=== PATIENT | male | born 1980 | race African-American/Black ===

== ENCOUNTER 2019-01-06 21:56 | Emergency (ER) | payer MEDICAID ==
--- OUTSIDE RECORDS SUMMARY | 2019-01-06 22:48 | XMS REPORT | Continuity of Care Document ---
:1980 External Reference #:[id number] Author Name Kim Dykes DO (transmitted by agent of provider Tosha Gonzalez) Address [address] [place] [address] Care Team Providers Name Role Phone Kim Dykes DO - Hospitalist Care Team Information Psychologist Private Practice Problems Description No Information Available Social History Type Date Description Comments Sex Unknown ETOH Use Denies alcohol use Tobacco Use Start: Unknown Heavy tobacco smoker (more than 10 cigarettes/day) Recreational Drug Use Denies Drug Use Smoking Status Reviewed: 12/30/18 Heavy tobacco smoker (more than 10 cigarettes/day) Allergies, Adverse Reactions, Alerts Description No Known Drug Allergies Medications Active Medications SIG Qnty Indications Ordering Date Provider Multivitamin Men Kim Dykes, 12/30/2018 DO Tablets Clozapine 1po daily Kim Dykes, 12/30/2018 200mg DO Tablets Dispers Clozapine 1 po daily Kim Dykes, 12/30/2018 150mg DO Tablets Dispers Clozapine 2 po at Kim Dykes, 12/30/2018 200mg DO Tablets Dispers Clozapine 1 po at hs Kim Dykes, 12/30/2018 100mg DO Tablets Simethicone take one twice a day 30caps R14.1 Kim Dykes, 12/30/2018 125mg as needed for gas DO Capsules Bisacodyl Ec take one daily as 30tabs R14.1 Kim Dykes, 12/30/2018 5mg needed for DO Tablets DR constipation Miralax take 17 g twice a 1units Kim Dykes, 12/30/2018 Powder day DO Depakote 3 by mouth bid a Unknown 500mg day Tablets DR History Medications Protonix 1 by mouth every 30tabs Kim Marquesner, DO 12/30/2018 - 40mg Tablets day 12/30/2018 Immunizations Description No Information Available Vital Signs Date Vital Result Comment 12/30/2018 11:32am Weight 301.00 lb Heart Rate 98 /min BP Systolic 114 mmHg BP Diastolic 80 mmHg Body Temperature 97.7 F O2 % BldC Oximetry 97 % Results Description No Information Available Procedures Description No Information Available Medical Devices Description No Information Available Encounters Description No Information Available Assessments Date Code Description Provider 12/30/2018 Z00.00 Encounter for general adult medical examination Kim Dykes DO without abnormal findings 12/30/2018 Z72.0 Tobacco use Kim Dykes, DO 12/30/2018 R14.1 Gas pain Kim Dykes, DO 12/30/2018 K59.00 Constipation, unspecified Kim Dykes, DO 12/30/2018 R35.0 Frequency of micturition Kim Dykes DO Plan of Treatment 12/30/2018 - Kim Dykes DOZ00.00 Encounter for general adult medical examination without abnormal findingsReferral:Nitin Kim DPM, ZuocbvmhazF46.0 Tobacco useR14.1 Gas painNew Medication:Simethicone 125 mg - take one twice a day as needed for gasBisacodyl Ec 5 mg - take one daily as needed for bppqrrzjziexE70.00 Constipation, unspecifiedComments:stop the protonix, senna, and colaceReferral:Omar Messina MD, DmsuvljyiktqorpsQ35.0 Frequency of micturitionReferral:Guilherme Rhodes MD, Urology Functional Status Description No Information Available Mental Status Description No Information Available Referrals Refer to Reason for Referral Status Appt Date Nitin Kim DPM Created [address] [place] [address] [phone] Omar Messina MD Created [address] [place] [address] [phone] Guilherme Rhodes MD Created [address] [facility] [place] [place] [address] [place] [address] [phone]
[2019-01-06 22:55] LABS: ABS Basophils 0.1 10^3/ul (0-0.2); ABS Eosinophils 0.2 10^3/ul (0-0.6); ABS Lymphocytes 3.1 10^3/ul (1.0-4.8); ABS Monocytes 1.2 10^3/ul (0-0.8); ABS Neutrophils 7.8 10^3/ul (1.5-7.7); Eosinophil % 1.9 %; Hematocrit 45 % (42-52); Hemoglobin 15.2 g/dL (14.0-18.0); Lymphocyte % 24.7 %; Mean Corpuscular HGB Conc 34 g/dL (31-36); Mean Corpuscular Hemoglobin 32 pg (27-31); Mean Corpuscular Volume 96 fL (80-94); Mean Platelet Volume 7.6 fL (7.4-10.4); Nucleated Red Blood Cells % 0.1; Platelet Count 225 10^3/uL (150-450); Red Blood Count 4.74 10^6 /uL (4.18-5.48); Red Cell Distribution Width 14 % (10-15); White Blood Count 12.4 10^3/uL (3.5-10.8)
[2019-01-06 23:11] LABS: Urine Appearance Cloudy; Urine Bilirubin Negative (Negative); Urine Blood Negative (Negative); Urine Color Yellow; Urine Glucose Negative (Negative); Urine Ketones Negative (Negative); Urine Nitrite Negative (Negative); Urine Protein Negative (Negative); Urine Specific Gravity 1.016 (1.010-1.030); Urine Urobilinogen Negative (Negative)
[2019-01-06 23:11] LABS: ALT 26 U/L (7-52); AST 26 U/L (13-39); Albumin 4.7 g/dL (3.2-5.2); Albumin/Globulin Ratio 1.3 (1-3); Alkaline Phosphatase 50 U/L (34-104); Anion Gap 6 mmol/L (2-11); BUN/Creatinine Ratio 16.1 (8-20); Blood Urea Nitrogen 15 mg/dL (6-24); CO2 Carbon Dioxide 33 mmol/L (22-32); Calcium 10.1 mg/dL (8.6-10.3); Chloride 101 mmol/L (101-111); EGFR African American 109.4 (>60); EGFR Non-African American 90.5 (>60); Globulin 3.5 g/dL (2-4); Glucose 95 mg/dL (70-100); Potassium 4.3 mmol/L (3.5-5.0); Sodium 140 mmol/L (135-145); Total Protein 8.2 g/dL (6.4-8.9)
[2019-01-06 23:31] LABS: Urine Benzodiazepine Screen None Detected (None Detect); Urine Opiates Screen None Detected (None Detect)
[2019-01-06 23:35] LABS: Acetaminophen < 15 mcg/mL; Alcohol < 10 mg/dL (<10); Salicylate < 2.50 mg/dL (<30)
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
[2019-01-06 23:49] LABS: TSH (Thyroid Stimulating Horm) 0.56 mcIU/mL (0.34-5.60)
[2019-01-07] MEDS: Al Hydrox/Mg Hydrox/Simet LIQ* 30 ML UDC PO ONE (03:04)
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
[2019-01-07] MEDS ORDERED: Polyethylene Glycol 3350* 17 GM PACKET PO PRN (08:13)
[2019-01-07] MEDS: Divalproex DR TAB(*) 500 MG PO SCH (08:41)
[2019-01-07] MEDS: Senna TAB 8.6 mg* TAB PO SCH (08:42)
[2019-01-07] MEDS: CloZAPine TAB* 25 MG TAB PO SCH (08:42)
[2019-01-07] MEDS: CloZAPine TAB* 100 MG TAB PO SCH (08:42)
[2019-01-07] MEDS: CLOZAPINE 500 MG PO SCH (08:49)
[2019-01-07 12:56] VITALS: BP 131/78
== END 2019-01-07 13:29 | disposition home or self-care (01) ==
LOC: ED 21:56
DX: F20.0 Paranoid schizophrenia (principal); F43.20 Adjustment disorder, unspecified; F17.200 Nicotine dependence, unspecified, uncomplicated; Z79.899 Other long term (current) drug therapy
CPT/HCPCS: 36415; 80053; 80164; 80307; 80320; 80329; 81003; 84443; 85025; 99284; A9270-GY; G0480

== ENCOUNTER 2020-03-31 20:41 | Inpatient (IN) ==
[2020-03-31] MEDS ORDERED: Nicotine GUM 2MG FRUIT FLAVOR PO PRN (23:00)
[2020-03-31] MEDS ORDERED: Haloperidol 5 mg/ml SDV IV/IM 5 MG/ML AMP IM PRN (23:49)
[2020-03-31] MEDS ORDERED: LORazepam 2 mg VIAL 1 ml IM PRN (23:50)
[2020-03-31] MEDS ORDERED: Lorazepam PYXIS KEY PRN (23:50)
[2020-03-31] MEDS ORDERED: diPHENhydraMINE IV 50 MG/ML 1 ml VIAL (BENADRYL) IM PRN (23:51)
[2020-04-01] MEDS: Calcium Polycarbophil 625mg TB PO SCH (09:27)
[2020-04-01] MEDS: Vitamin THERAPEUTIC TAB PO SCH (09:27)
[2020-04-01] MEDS: Polyethylene Glycol 3350 17 GM PACKET PO SCH (09:40)
[2020-04-01] MEDS: Nicotine PATCH 14 MG/24 HR PATCH TRANSDERM SCH (09:40)
[2020-04-01] MEDS ORDERED: LORazepam 2 mg VIAL 1 ml IM PRN (10:48)
[2020-04-01] MEDS ORDERED: Lorazepam PYXIS KEY PRN (10:48)
[2020-04-02 08:31] LABS: HDL Cholesterol 41.4 mg/dL
[2020-04-02] MEDS: Al Hydrox/Mg Hydrox/Simet LIQ 30 ML UDC PO PRN (09:58)
[2020-04-02] MEDS: Calcium Polycarbophil 625mg TB PO SCH (12:45)
[2020-04-02] MEDS: Vitamin THERAPEUTIC TAB PO SCH (13:43)
[2020-04-02] MEDS: Nicotine PATCH 14 MG/24 HR PATCH TRANSDERM SCH (13:43)
[2020-04-03] MEDS: Calcium Polycarbophil 625mg TB PO SCH (09:31)
[2020-04-03] MEDS: Nicotine PATCH 14 MG/24 HR PATCH TRANSDERM SCH (09:31)
[2020-04-03] MEDS: Vitamin THERAPEUTIC TAB PO SCH (09:31)
[2020-04-03] MEDS: Polyethylene Glycol 3350 17 GM PACKET PO SCH (09:31)
[2020-04-03] MEDS: Al Hydrox/Mg Hydrox/Simet LIQ 30 ML UDC PO PRN (14:16)
[2020-04-04] MEDS: Al Hydrox/Mg Hydrox/Simet LIQ 30 ML UDC PO PRN (00:10)
[2020-04-04] MEDS: Polyethylene Glycol 3350 17 GM PACKET PO SCH (04:42)
[2020-04-04] MEDS: Calcium Polycarbophil 625mg TB PO SCH (11:43)
[2020-04-04] MEDS: Nicotine PATCH 14 MG/24 HR PATCH TRANSDERM SCH (11:44)
[2020-04-04] MEDS: Vitamin THERAPEUTIC TAB PO SCH (11:44)
[2020-04-05] MEDS: Calcium Polycarbophil 625mg TB PO SCH (08:44)
[2020-04-05] MEDS: Vitamin THERAPEUTIC TAB PO SCH (08:45)
[2020-04-05] MEDS: Nicotine PATCH 14 MG/24 HR PATCH TRANSDERM SCH (08:45)
[2020-04-05] MEDS: Polyethylene Glycol 3350 17 GM PACKET PO SCH (08:45)
[2020-04-06] MEDS: Vitamin THERAPEUTIC TAB PO SCH (07:59)
[2020-04-06] MEDS: Calcium Polycarbophil 625mg TB PO SCH (07:59)
[2020-04-06] MEDS: Nicotine PATCH 14 MG/24 HR PATCH TRANSDERM SCH (07:59)
[2020-04-07] MEDS: Calcium Polycarbophil 625mg TB PO SCH (09:22)
[2020-04-07] MEDS: Polyethylene Glycol 3350 17 GM PACKET PO SCH (09:23)
[2020-04-07] MEDS: Vitamin THERAPEUTIC TAB PO SCH (09:23)
[2020-04-07] MEDS: Nicotine PATCH 14 MG/24 HR PATCH TRANSDERM SCH (09:23)
[2020-04-08] MEDS: Calcium Polycarbophil 625mg TB PO SCH (08:58)
[2020-04-08] MEDS: Nicotine PATCH 14 MG/24 HR PATCH TRANSDERM SCH (08:59)
[2020-04-08] MEDS: Vitamin THERAPEUTIC TAB PO SCH (08:59)
[2020-04-09] MEDS: Calcium Polycarbophil 625mg TB PO SCH (08:43)
[2020-04-09] MEDS: Nicotine PATCH 14 MG/24 HR PATCH TRANSDERM SCH (08:43)
[2020-04-09] MEDS: Polyethylene Glycol 3350 17 GM PACKET PO SCH (08:44)
[2020-04-09] MEDS: Vitamin THERAPEUTIC TAB PO SCH (08:44)
[2020-04-10 07:42] LABS: Urine Appearance Cloudy; Urine Bilirubin Negative (Negative); Urine Blood 1+ (Negative); Urine Color Amber; Urine Glucose Negative (Negative); Urine Ketones 1+ (Negative); Urine Nitrite Negative (Negative); Urine Protein 2+(100 mg/dL) (Negative); Urine Specific Gravity 1.044 (1.010-1.030); Urine Urobilinogen Negative (Negative)
[2020-04-10 07:51] LABS: Urine Bacteria Absent (Absent); Urine Red Blood Cell 2+(6-10/hpf) (Absent); Urine Squamous Epithelial Cell Present (Absent); Urine White Blood Cell Trace(0-5/hpf) (Absent)
[2020-04-10] MEDS ORDERED: cefTRIAXone VIAL 1,000 MG VIAL IM ONE (08:52)
[2020-04-10] MEDS: Calcium Polycarbophil 625mg TB PO SCH (10:05)
[2020-04-10] MEDS: Vitamin THERAPEUTIC TAB PO SCH (10:06)
[2020-04-10] MEDS: Nicotine PATCH 14 MG/24 HR PATCH TRANSDERM SCH (10:06)
[2020-04-10] MEDS ORDERED: OLANzapine 5 mg TAB*ODT PO ONE (14:22)
[2020-04-10] MEDS ORDERED: OLANzapine 5 mg TAB*ODT ONE (14:23)
[2020-04-10] MEDS ORDERED: AZITHROMYCIN 500 MG TAB PO ONE (15:45)
[2020-04-11] MEDS: Vitamin THERAPEUTIC TAB PO SCH (11:06)
[2020-04-11] MEDS: Nicotine PATCH 14 MG/24 HR PATCH TRANSDERM SCH (11:06)
[2020-04-11] MEDS: Polyethylene Glycol 3350 17 GM PACKET PO SCH (11:06)
[2020-04-11] MEDS: Calcium Polycarbophil 625mg TB PO SCH (11:06)
[2020-04-11 12:40] LABS: Chlamydia trachomatis NAA Negative (Negative); Neisseria gonorrhoeae (GC) NAA Negative (Negative)
[2020-04-11] MEDS ORDERED: Haloperidol 5 mg/ml SDV IV/IM 5 MG/ML AMP ONE (23:10)
[2020-04-11] MEDS ORDERED: diPHENhydraMINE IV 50 MG/ML 1 ml VIAL (BENADRYL) ONE (23:11)
[2020-04-12] MEDS: Calcium Polycarbophil 625mg TB PO SCH (11:13)
[2020-04-12] MEDS: Vitamin THERAPEUTIC TAB PO SCH (11:14)
[2020-04-12] MEDS: Nicotine PATCH 14 MG/24 HR PATCH TRANSDERM SCH (11:14)
[2020-04-13] MEDS: Vitamin THERAPEUTIC TAB PO SCH (10:20)
[2020-04-13] MEDS: Calcium Polycarbophil 625mg TB PO SCH (10:20)
[2020-04-13] MEDS: Nicotine PATCH 14 MG/24 HR PATCH TRANSDERM SCH (10:26)
[2020-04-13] MEDS: Polyethylene Glycol 3350 17 GM PACKET PO SCH (10:26)
[2020-04-13 19:06] LABS: ABS Eosinophils 0.2 10^3/ul (0-0.6); ABS Lymphocytes 4.4 10^3/ul (1.0-4.8); ABS Monocytes 1.2 10^3/ul (0-0.8); ABS Neutrophils 5.9 10^3/ul (1.5-7.7); Eosinophil % 1.6 %; Hematocrit 44 % (42-52); Hemoglobin 14.5 g/dL (14.0-18.0); Lymphocyte % 37.5 %; Mean Corpuscular HGB Conc 33 g/dL (31-36); Mean Corpuscular Hemoglobin 31 pg (27-31); Mean Corpuscular Volume 92 fL (80-94); Mean Platelet Volume 7.6 fL (7.4-10.4); Nucleated Red Blood Cells % 0.1; Platelet Count 274 10^3/uL (150-450); Red Blood Count 4.74 10^6 /uL (4.18-5.48); Red Cell Distribution Width 15 % (10-15); White Blood Count 11.8 10^3/uL (3.5-10.8)
[2020-04-14] MEDS: Nicotine PATCH 14 MG/24 HR PATCH TRANSDERM SCH (08:48)
[2020-04-14 09:27] LABS: Albumin 4.5 g/dL (3.2-5.2); Calcium 9.5 mg/dL (8.6-10.3); Potassium 3.5 mmol/L (3.5-5.0); Total Bilirubin 0.5 mg/dL (0.2-1.0)
[2020-04-14 09:33] LABS: Albumin/Globulin Ratio 1.6 (1-3); BUN/Creatinine Ratio 13.1 (8-20); EGFR African American 122.5 (>60); EGFR Non-African American 101.2 (>60); Globulin 2.9 g/dL (2-4); Total Protein 7.4 g/dL (6.4-8.9)
[2020-04-14] MEDS: Vitamin THERAPEUTIC TAB PO SCH (10:38)
[2020-04-14] MEDS: Calcium Polycarbophil 625mg TB PO SCH (10:38)
[2020-04-15] MEDS: Nicotine PATCH 14 MG/24 HR PATCH TRANSDERM SCH (07:48)
[2020-04-15] MEDS: Calcium Polycarbophil 625mg TB PO SCH (09:55)
[2020-04-15] MEDS: Vitamin THERAPEUTIC TAB PO SCH (09:55)
[2020-04-15] MEDS: Polyethylene Glycol 3350 17 GM PACKET PO SCH (09:58)
[2020-04-16] MEDS: Nicotine PATCH 14 MG/24 HR PATCH TRANSDERM SCH (09:20)
[2020-04-16] MEDS: Calcium Polycarbophil 625mg TB PO SCH (09:23)
[2020-04-16] MEDS: Vitamin THERAPEUTIC TAB PO SCH (09:23)
[2020-04-17] MEDS: Vitamin THERAPEUTIC TAB PO SCH (12:01)
[2020-04-17] MEDS: Polyethylene Glycol 3350 17 GM PACKET PO SCH (12:01)
[2020-04-17] MEDS: Calcium Polycarbophil 625mg TB PO SCH (12:01)
[2020-04-17] MEDS: Nicotine PATCH 14 MG/24 HR PATCH TRANSDERM SCH (12:01)
[2020-04-18] MEDS: Vitamin THERAPEUTIC TAB PO SCH (10:04)
[2020-04-18] MEDS: Nicotine PATCH 14 MG/24 HR PATCH TRANSDERM SCH (10:04)
[2020-04-18] MEDS: Calcium Polycarbophil 625mg TB PO SCH (10:04)
[2020-04-19] MEDS: Calcium Polycarbophil 625mg TB PO SCH (10:12)
[2020-04-19] MEDS: Nicotine PATCH 14 MG/24 HR PATCH TRANSDERM SCH (10:12)
[2020-04-19] MEDS: Vitamin THERAPEUTIC TAB PO SCH (10:13)
[2020-04-19] MEDS: Polyethylene Glycol 3350 17 GM PACKET PO SCH (10:13)
[2020-04-20] MEDS: Vitamin THERAPEUTIC TAB PO SCH (07:20)
[2020-04-20] MEDS: Nicotine PATCH 14 MG/24 HR PATCH TRANSDERM SCH (07:20)
[2020-04-20] MEDS: Calcium Polycarbophil 625mg TB PO SCH (07:20)
[2020-04-21] MEDS: Vitamin THERAPEUTIC TAB PO SCH (08:43)
[2020-04-21] MEDS: Calcium Polycarbophil 625mg TB PO SCH (08:43)
[2020-04-22] MEDS: Calcium Polycarbophil 625mg TB PO SCH (07:31)
[2020-04-22] MEDS: Vitamin THERAPEUTIC TAB PO SCH (07:31)
[2020-04-23 07:52] VITALS: BP 155/96
[2020-04-23] MEDS: Vitamin THERAPEUTIC TAB PO SCH (08:23)
[2020-04-23] MEDS: Calcium Polycarbophil 625mg TB PO SCH (08:23)
== END 2020-04-23 11:40 | DRG 750 ==
LOC: ED 20:41 → BSU 23:38
PROVIDERS: ADMIT Psychiatry & Neurology Psychiatry; ATTEND Psychiatry & Neurology Psychiatry